=== PATIENT | female | born 2005 | race Caucasian/White ===

== ENCOUNTER 2024-12-19 12:24 | Emergency (ER) | payer SELFPAY ==
[2024-12-19] MEDS: Sodium Chloride 0.9% 1,000 ML IV ONE (13:18)
[2024-12-19] MEDS: Ketorolac 30 MG/ML SDV IVPUSH ONE (13:19)
[2024-12-19] MEDS: Ondansetron 4 MG/2 ML SDV IVPUSH ONE (13:19)
[2024-12-19] MEDS: diphenhydrAMINE 50 MG/ML SDV IVPUSH ONE (13:23)
[2024-12-19] MEDS: Metoclopramide 10 MG/2 ML SDV IVPUSH ONE (13:23)
== END 2024-12-19 14:44 | disposition home or self-care (01) ==
LOC: MW.ED 12:24
DX: G43.909 Migraine, unspecified, not intractable, without status migrainosus (principal); F17.200 Nicotine dependence, unspecified, uncomplicated; Z88.1 Allergy status to other antibiotic agents
CPT/HCPCS: 96361; 96374; 96375; 99283; J1200; J1885; J2405; J2765; J7030